=== PATIENT | male | born 1930 | race Caucasian/White ===

== ENCOUNTER 2017-03-28 07:57 | Emergency (ER) | payer MEDICARE, BC ==
[~2017-03-28] VITALS: Ht 162.6 cm; Wt 68.9 kg
[~2017-03-28 07:57] MED LIST: ACET650T11 PO; ALBU2.5V11 HHN; ATOR80TA PO; HEPA50004 SQ; IPRA0.2S18 IH; OLAN5TAB3 PO; OLANZAPINE 2.5 MG TABLET; SIMV80TA5; TAMS0.4C34; TAMS0.4C34 PO; TRAZ-144 PO
--- NOTE | 2017-03-28 08:01 | NUR ---
spencer FROM [facility] dt sp fall, per pt and son pt head hit the night stand. Eyebrow line notedw with lac covered with dry dressing. Denies ko. Pt remains ambulatory. Afbrile. vss
--- NOTE | 2017-03-28 08:03 | NUR ---
MD JAMES AT BEDSIDE
[2017-03-28] MEDS ORDERED: TDAP [DIPH/PERTUSSIS/TET] 0.5 ML VIAL IM ONE ×2 (08:14→08:30)
[2017-03-28] MEDS ORDERED: BACITRACIN ZINC OINT PACKET 1 EA PACKET TP ONE (08:14)
[2017-03-28] MEDS ORDERED: LIDOCAINE /MPF 1% VIAL 5 ML VIAL ONE (08:14)
[2017-03-28] MEDS ORDERED: LIDOCAINE HCL/PF 1% 30 ML VIAL TP ONE (08:30)
[2017-03-28] MEDS ORDERED: BACI/NEOM/POLY B OINT PKT 1 UDPKT PACKET TP ONE (08:30)
--- NOTE | 2017-03-28 08:46 | NUR ---
PT BACK FROM [place]
[2017-03-28 09:07] VITALS: BP 121/87
== END 2017-03-28 09:07 | disposition home or self-care (01) ==
LOC: ER 08:01
DX: S01.81XA Laceration without foreign body of other part of head, initial encounter (principal); I10 Essential (primary) hypertension; N40.0 Benign prostatic hyperplasia without lower urinary tract symptoms; Z95.2 Presence of prosthetic heart valve; Z93.3 Colostomy status; Z85.038 Personal history of other malignant neoplasm of large intestine; W06.XXXA Fall from bed, initial encounter; Y93.89 Activity, other specified; Y92.89 Other specified places as the place of occurrence of the external cause; Y99.8 Other external cause status
CPT/HCPCS: 12011; 70450; 90471; 90715; 99284; A4606; J3490 ×2; Z7610